=== PATIENT | female | born 1965 ===

== ENCOUNTER 2025-03-14 09:52 | Outpatient (RCR) | payer OTHER, SELFPAY ==
[2025-02-28 10:00] VITALS: BP 136/89
[2025-02-28] MEDS: TYLENOL 650 MG PO (10:26)
[2025-02-28] MEDS: ZYRTEC 10 MG PO (10:26)
[2025-02-28] MEDS: SOLU-CORTEF 100 MG IV (10:27)
[2025-02-28] MEDS: LEQEMBI 257.94 MG IV ×2 (10:33)
[2025-02-28 11:35] VITALS: BP 131/81
[2025-02-28 12:20] VITALS: BP 133/76
[2025-03-14] VITALS (7 sets, daily range): BP systolic 102–137; BP diastolic 70–88
[2025-03-14] MEDS: ZYRTEC 10 MG PO (10:46)
[2025-03-14] MEDS: TYLENOL 650 MG PO (10:46)
[2025-03-14] MEDS: SOLU-CORTEF 100 MG IV (10:47)
[2025-03-14] MEDS: NSS 250 IV (10:48)
[2025-03-14] MEDS: LEQEMBI 257.94 MG IV ×2 (10:56)
== END 2025-03-15 09:41 | disposition home or self-care (01) ==
LOC: OID 09:52
PROVIDERS: ATTENDING PHYSICIAN Psychiatry & Neurology Neurology; FAMILY PHYSICIAN Family Medicine
DX: G60.3 Idiopathic progressive neuropathy (principal)
CPT/HCPCS: 96361; 96365; 96375; J0174

== ENCOUNTER 2025-04-11 09:59 | Outpatient (RCR) | payer OTHER, SELFPAY ==
[2025-03-28 10:05] VITALS: BP 138/90
[2025-03-28] MEDS: SOLU-CORTEF 100 MG IV (10:22)
[2025-03-28] MEDS: NSS 250 IV (10:22)
[2025-03-28] MEDS: ZYRTEC 10 MG PO (10:23)
[2025-03-28] MEDS: TYLENOL 650 MG PO (10:23)
[2025-03-28] MEDS: LEQEMBI 257.94 MG IV ×2 (10:23)
[2025-03-28 12:45] VITALS: BP 121/85
[2025-04-11 10:15] VITALS: BP 192/96
[2025-04-11] MEDS: SOLU-CORTEF 100 MG IV (10:33)
[2025-04-11] MEDS: ZYRTEC 10 MG PO (10:33)
[2025-04-11] MEDS: NSS 250 IV (10:35)
[2025-04-11] MEDS: LEQEMBI 257.94 MG IV ×2 (10:39)
[2025-04-11] MEDS: BENADRYL 0.5 MG IV ×2 (12:37→12:57)
[2025-04-11] MEDS: NSS (PRESERVATIVE FREE) 10 ML IV (12:59)
[2025-04-11] MEDS: NSS (PRESERVATIVE FREE) 10 MG IV (12:59)
[2025-04-11 13:04] VITALS: BP 151/93
[2025-04-11 13:32] VITALS: BP 136/76
[2025-04-11 14:21] VITALS: BP 108/84
[2025-04-11] MEDS: SOLU-MEDROL PF 54 MG IV (14:30)
--- NOTE | 2025-04-11 15:04 | STATUS ---
SITUATION:
Pt presented with head pressure, and changes in vision post infusion with Leqembi. This is the pt fourth time recieving this drug and first time having any sort of reaction during or before. VS were stable but pt started to present with chest
tightness and shortness of breath. Pt recieved 25 benadryl IV. We waited 5 minutes and then gave another 25mg benadry IV as well as pepcid IV. Pt still reported all same symptoms. This RN called [facility] to speak with the pts neurologist about how to
proceed. I Spoke with a nurse, Lobo and then eventually spoke with Dr. Jacobson. He recommeded pt recieve 250mg solumedrol and be taken to the ER for iron sensitive imaging. Pt transported to ER with this RN and talent development manager Sharri with solumedrol
hanging. Report was given to Er nurse and this RN waited for solumedrol to finish before leaving the pt with her sister in the ER triage.
BACKGROUND:
ASSESSMENT:
RECOMMENDATION:
== END 2025-04-25 23:59 | disposition home or self-care (01) ==
LOC: OID 09:59
PROVIDERS: ATTENDING PHYSICIAN Psychiatry & Neurology Neurology; FAMILY PHYSICIAN Family Medicine
DX: G60.3 Idiopathic progressive neuropathy (principal); G30.0 Alzheimer's disease with early onset; G31.84 Mild cognitive impairment of uncertain or unknown etiology
CPT/HCPCS: 96365; 96367; 96375; 96376; J0174

== ENCOUNTER 2025-04-12 09:03 | Inpatient (IN) | payer OTHER, SELFPAY ==
[2025-04-11 14:48] VITALS: BP 145/113
[2025-04-11] MEDS: BENADRYL 25 MG IV (17:03)
[2025-04-11] MEDS: TYLENOL 650 MG PO (17:03)
[2025-04-11] MEDS: COMPAZINE 10 MG IV (17:04)
--- NOTE | 2025-04-11 19:18 | ED.GENMED ---
History of Present Illness
General
Chief Complaint: Headache
Source: patient
Exam Limitations: none
Time Seen by Provider: 04/11/25 16:05
History of Present Illness
History of Present Illness:
59-year-old female presents from the outpatient infusion center for worsening headache and blurry vision. She was receiving a dose of Leqembi. This was her fourth infusion. She was instructed to come to the emergency room for emergent MRI imaging
of her brain by her neurologist from [place] for potential side effects of this infusion. She notes blurry vision out of both eyes. She denies any unilateral numbness or weakness. There is no vomiting. No chest pain.
Phy Exam
Physical Exam
Physical Exam:
General: Well appearing female, NAD
HEENT: NC/AT PERRL
Heart: RRR, no murmurs
Lungs: CTA
Neuro: Alert and oriented, no facial asymmetry, no unilateral deficit, weakness or drift. No slurred speech
Ext: no cyanosis or edema.
skin: Warm, no rash
Course
Orders/Labs/Results
Orders:
Orders
04/11/25 16:39
MRI Brain [MR Brain Without Contrast] Urgent
Comment:
Reason For Exam: headache
Recent pill cam endoscopy?: No
04/11/25 16:44
Acetaminophen [Tylenol] 650 mg PO NOW STA
Diphenhydramine [Benadryl] 25 mg IV NOW STA
Prochlorperazine [Compazine] 10 mg IV NOW STA
Vital Signs
Initial and Last Documented VS:
Initial Vital Signs
Temp Pulse Resp BP Pulse Ox
99.3 F 104 16 145/113 97
04/11/25 14:48 04/11/25 14:48 04/11/25 14:48 04/11/25 14:48 04/11/25 14:48
Last Documented Vital Signs
Temp Pulse Resp BP Pulse Ox
99.3 F 118 19 145/113 95
04/11/25 14:48 04/11/25 17:15 04/11/25 17:00 04/11/25 14:48 04/11/25 17:00
MDM/Problems Addressed
Differential Diagnosis Includes:
Patient presents with worsening headache since infusion today. Infusion is known to potentially cause cerebral edema or microhemorrhages. She was sent in for an emergent MRI of the brain by her neurologist. I spoke with our neurology team as well
as radiology. MRI of the brain was ordered which does demonstrate edema within the right occipital lobe. Spoke with neurology from [facility] who recommended 1g IV solumedrol daily x 3 days[address] I spoke with Dr. Cardenas who is aware and agrees with
admission.
*Pulse Oximetry
SaO2: 95
Oxygen Mode of Delivery: Room air
Patient hypoxic: no
*Critical Care Note
Total Time (30-74mins, 75-104mins- exclusive of procedures): Not Applicable
ED Attending Note
-
Portions of this chart may have been created with voice recognition software.� Occasional wrong word or��sound alike� substitutions may have occurred due to the inherent limitations of voice recognition software.
Discharge Plan
Departure
Patient Disposition: Admit
Date of Disposition: 04/11/25
Time of Disposition: 19:27
Presentation/result/management discussed w/ accepting MD/DO: Hospitalist
Discharge Problem:
Headache
Prescriptions:
No Action
atorvastatin [Lipitor] 20 mg Tablet
20 mg PO DAILY
donepezil [Aricept] 5 mg Tablet
5 mg PO HS
venlafaxine 150 mg Capsule,Extended Release 24hr
150 mg PO DAILY
alprazolam [Xanax] 0.25 mg Tablet
0.25 mg PO HS PRN (Reason: anxiety)
famotidine [Acid Nicu Rn (famotidine)] 20 mg Tablet
20 mg PO BID
magnesium 250 mg Tablet
250 mg PO DAILY
memantine 5 mg Tablet
5 mg PO BID
melatonin 5 mg Tablet
5 mg PO HS PRN (Reason: sleep)
cholecalciferol (vitamin D3) [Vitamin D3] 50 mcg (2,000 unit) Capsule
50 mcg PO DAILY
mecobalamin (vitamin B12) [B12 Active] 1,000 mcg Tablet,Chewable
1,000 mcg PO .EVERYOTHER DAY
Referrals:
Cristy Gotti DO [Family Provider, Family Practice]
Interventions
Interventions:
*Risk Screen - Suicide Last Done: 04/11/25 14:48
*General Assessment Last Done: 04/11/25 17:39
*Neglect/Abuse Screening Last Done: 04/11/25 14:48
*ED COVID-19 Vaccine History Last Done: 04/11/25 15:42
ED- Neurological Assessment Last Done: 04/11/25 15:43
Discharge Date and Time
Print Language: ARABIC
[2025-04-11 19:57] VITALS: BP 138/102
[2025-04-11 20:00] VITALS: BP 136/104
[2025-04-11 20:07] LABS: Hematocrit 42.6 % (37.0-47.0); Hemoglobin 14.8 g/dL (12.0-16.0); Mean Corp Hgb Conc. 34.7 g/dL (33.0-37.0); Mean Corpuscular Volume 88.2 fL (81.0-99.0); Nucleated Red Blood Cells % 0 %; Platelet Count 361 10^3/uL (130-400); Red Cell Dist. Width 13.2 % (11.5-14.5)
[2025-04-11] MEDS: SOLU-MEDROL 262 MG IV (20:19)
[2025-04-11 20:31] LABS: ALT (SGPT) 34 U/L (0-35); AST (SGOT) 31 U/L (14-36); Albumin 5.1 g/dl (3.5-5.0); Alkaline Phosphatase 202 U/L (38-126); Blood Urea Nitrogen 10 mg/dl (7-17); Calcium 9.9 mg/dl (8.4-10.2); Carbon Dioxide 22 mmol/L (22-30); Chloride 109 mmol/L (98-107); Glucose 168 mg/dl (70-99); Potassium 4.0 mmol/L (3.5-5.1); Sodium 141 mmol/L (135-145); Total Protein 7.7 g/dl (6.3-8.2); eGFR > 60.00
[2025-04-11 21:00] VITALS: BP 126/76
[2025-04-11 22:00] VITALS: BP 134/78
--- NOTE | 2025-04-11 22:50 | HPS.HSE ---
Family Physician
-
Family Physician: Cristy Gotti
Chief Complaint
-
CARRANZA and blurry vision s/p 4th IV infusion of Leqembi.
History of Present Illness
HPI
59F HX Dementia , No prior visit to seen at ER:
- she presents from the outpatient infusion center for worsening headache and blurry vision.
- she was receiving 4th dose of IV Leqembi( Monoclonal Ab)
- She was instructed to come to the ER for emergent MRI imaging of her brain by her neurologist from [place] for potential side effects of this infusion.
Medical History
Past Medical History
Past Medical History: Reports Dementia and Hypercholesterolemia
Past Surgical History: Reports None
Social History
Unable to obtain full social history at this time due to: Dementia
Family History
Family History: Not pertinent
Allergies / Home Medications
Allergies reflects when Allergies were last updated in [facility].
Home Medications with original date entered in [facility]
Allergy/Medication List:
Allergies
Allergy/AdvReac Type Severity Reaction Status Date / Time
Latex, Natural Rubber Allergy Severe Shortness Verified 04/11/25 10:29
of Breath
diphenhydramine Allergy Unknown Unknown Verified 04/11/25 10:29
Home Medications
atorvastatin 20 mg tablet (Lipitor) 20 mg PO .ON HOLD 02/28/25
cholecalciferol (vitamin D3) 50 mcg (2,000 unit) capsule (Vitamin D3) 50 mcg PO DAILY 02/28/25
donepezil 5 mg tablet (Aricept) 5 mg PO QPM 02/28/25
famotidine 20 mg tablet (Acid Greeter (famotidine)) 20 mg PO BID 02/28/25
magnesium 250 mg tablet 250 mg PO HS 02/28/25
melatonin 5 mg tablet 5 mg PO HSPRN PRN sleep 02/28/25
memantine 5 mg tablet 5 mg PO BID 02/28/25
venlafaxine 150 mg capsule,extended release 24 hr 150 mg PO DAILY 02/28/25
acetaminophen 500 mg tablet (Tylenol Extra Strength) 500 - 1,000 mg PO TIDPRN PRN mild pain 04/11/25
cyanocobalamin (vitamin B-12) 1,000 mcg tablet 1,000 mcg PO Q48H 04/11/25
ruxolitinib 1.5 % topical cream (Opzelura) 1 applic topical BID apply to vitiligo 04/11/25
Review of Systems
-
Unable to obtain full review of systems at this time due to: Dementia
Physical Exam
Vital Signs
Vital Signs
Temp Pulse Resp BP Pulse Ox
99.3 F 98 13 136/104 93
04/11/25 14:48 04/11/25 17:24 04/11/25 17:24 04/11/25 20:00 04/11/25 20:00
Physical Exam
General: Well Developed, Well Nourished and No Apparent Distress
HEENT: NormoCephalic, Moist mucous membranes and Atraumatic
Respiratory: Clear
Cardiac: S1/S2 and Regular Rhythm; No Murmur or Rub
GI: Soft, Non Tender, Non Distended and Normal Bowel Sounds; No Organomegaly
Rectal: Deferred by Provider
Musculoskeletal: No Clubbing, No Cyanosis and No Edema
Skin: Rash and Other (vertiligo at UEx and face )
Neuro: Nonfocal/grossly intact
Laboratory Results
-
04/11/25 19:43
04/11/25 19:42
Laboratory Results
Total Bilirubin 1.0 mg/dl (0.2-1.3) 04/11/25 19:42
AST 31 U/L (14-36) 04/11/25 19:42
ALT 34 U/L (0-35) 04/11/25 19:42
Alkaline Phosphatase 202 U/L (38-126) H 04/11/25 19:42
Data Reviewed
-
MRI: Report Reviewed by me
Lab Data: Labs Reviewed by me
Impression/Plan
-
Relevant data
Unremarkable CBC and CMP
Brain MRI
There is T2/FLAIR hyperintense signal with associated facilitated diffusion in the right occipital lobe.
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
Findings were discussed with the ordering provider Kurtis Rangel of the emergency department at 1830.
Last hospitalist admission:
ASSESSMENT & PLAN
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
HX MCI and Mild dementia
- mimic ischemic stroke but not stroke
- at risk for SZs, ICH , life threatening ADEs of Leqemibi
- Neurologist Dr Cardenas - IV solumedrol 1g daily x 3 day
- First dose of IV Methyl Prednisone 750 mg started at ER - brissa cont 2 more days
- c/w ELECTRICIAN UNDERGROUND Denepezil + Memantine
- Neurologist consult
HLD
- cont ELECTRICIAN UNDERGROUND Lipitor
Depression
- cont ELECTRICIAN UNDERGROUND Venlafaxine
Vitiligo HX
- cont OP meds
DVT Px: SCD
Full code
IP TLM
[2025-04-11 23:00] VITALS: BP 130/93
[2025-04-12] VITALS (7 sets, daily range): BP systolic 125–156; BP diastolic 71–97; BMI 30.3
--- NOTE | 2025-04-12 03:16 | PTCARENOTE ---
Pt arrived to 3W from ED via stretcher at approximately 0020. Pt able to ambulate into room. Pt and sister oriented to unit. Assessment completed by this RN. Call maurer within reach, plan of care ongoing.
[2025-04-12] MEDS: SOLU-MEDROL 258 MG IV (05:59)
[2025-04-12 06:01] LABS: Hematocrit 39.2 % (37.0-47.0); Hemoglobin 13.4 g/dL (12.0-16.0); Mean Corp Hgb Conc. 34.2 g/dL (33.0-37.0); Mean Corpuscular Volume 89.1 fL (81.0-99.0); Platelet Count 342 10^3/uL (130-400); Red Cell Dist. Width 12.9 % (11.5-14.5)
[2025-04-12 06:28] LABS: Blood Urea Nitrogen 16 mg/dl (7-17); Calcium 10.6 mg/dl (8.4-10.2); Carbon Dioxide 23 mmol/L (22-30); Chloride 109 mmol/L (98-107); Estimated Creatinine Clearance 111 ml/min; Glucose 248 mg/dl (70-99); Potassium 3.4 mmol/L (3.5-5.1); Sodium 140 mmol/L (135-145); eGFR > 60.00
[2025-04-12] MEDS: EFFEXOR XR 150 MG PO (08:04)
[2025-04-12] MEDS: NAMENDA 5 MG PO ×2 (08:04→20:52)
[2025-04-12] MEDS: KCL 40 MEQ PO (10:12)
[2025-04-12] MEDS: TYLENOL 650 MG PO (16:23)
--- NOTE | 2025-04-12 16:39 | CM ---
Alert awake oriented patient who lives with her SO Cristóbal in a 2 story home with 1 steps to enter and 13 steps to bed/bathroom. She is assisted in activates of daily living.She does drive .She uses no adaptive devices.
No VN in past . No SNF hx
Pharmacy [facility]
PCP Dr Gotti
PLAN Home with no needs
--- NOTE | 2025-04-12 17:38 | W.PN.HOSP.TC ---
Today's Communication/Plan
-
See plan
Assessment / Plan
Assessment / Plan
Impression
Presentation with acute onset of bilateral visual disturbances/blurry vision
Patient with Alzheimer's dementia on amyloid lowering therapy (monoclonal antibody IV infusion of Leqembi)
MRI findings consistent with acute to/flare hyperintense signal with associated facilitated diffusion in the right occipital lobe. In the settings of reported signal with lowering therapy and this is likely represents ARIA-E which is I am alert
reducing imaging abnormality. Reported side effect of monoclonal antibody.
Patient has no focal findings on exam
She has been initiated on pulse dose of Solu-Medrol 1 g daily for 3 days to be completed on 04/13
Continue close neurologic monitoring
Patient will be followed with primary neurology Dr. Kayden Jacobson [phone]/JOSEPHINE Castrejon [phone].
Dr. Alegre updated over the phone
Tachycardia and hypertension
ECG with normal sinus rhythm
Echo with preserved biventricular function
Continue telemetry monitoring
Hypertension likely related to pulse dose of systemic steroids. If uptrending, and remains tachycardic, consider introduce selective beta-he versus dihydropyridine ccb
Anticipated Discharge: 24 - 48 hours
Subjective/Interval History
-
Date of Service: April 12, 2025
Objective Data
-
Labs:
Laboratory Results
04/12/25
05:23
WBC 14.9 H
Hgb 13.4
Hct 39.2
Plt Count 342
Sodium 140
Potassium 3.4 L
Chloride 109 H
Carbon Dioxide 23
BUN 16
Creatinine 0.6
Glucose 248 H
Calcium 10.6 H
Vital Signs:
Vital Signs
Temp Pulse Resp BP Pulse Ox
98.3 F 93 16 155/93 95
04/12/25 15:51 04/12/25 15:51 04/12/25 15:51 04/12/25 15:51 04/12/25 15:51
I&O
04/11/25 04/12/25 04/13/25
06:59 06:59 06:59
Intake Total 0 / 0
Balance 1680 0
Physical Exam
-
General: Well Developed and No Apparent Distress
HEENT: Normocephalic, Atraumatic and Moist Mucous Membranes
Respiratory: Clear to Auscultation
Cardiac: Regular Rhythm and S1/S2; Negative Murmur, Rub or Gallop
GI: Soft, Nontender, Nondistended and Normal Bowel Sounds; Negative Organomegaly
Rectal: Deferred by Provider
Musculoskeletal: No Clubbing, No Cyanosis and No Edema
Skin: Negative Rash
Neuro: Nonfocal/Grossly Intact
[2025-04-12] MEDS: ARICEPT 5 MG PO (18:19)
[2025-04-12] MEDS: LIPITOR 20 MG PO (20:52)
[2025-04-12] MEDS: PEPCID 20 MG PO (20:52)
--- NOTE | 2025-04-12 22:06 | CON.NEURO ---
Neuro Assessment/Plan
Assessment
59 year old woman with Alz, mild dementia on Leqembi presenting with worsening headaches, blurry vision.
MRI imgs rev'd with patient and family showing a small amount of right occipital DWI and FLAIR signal abnormality consistent with ARIA-E (amylyoid related imaging abnormality with edema), of which headaches and blurry vision are typical symptoms.
Planned for 3 days of steroids to finish tomorrow
also component of occipital neuralgia on exam and some muscle stiffness on palpation; would heat pad or alternate ice/heat instead of just ice
Consultation
Order
Date of Consultation: 04/12/25
Requesting Provider: Keegan Lindsey
Reason for Consult: ARIA
Subjective/Objective
Subjective Data
Date of Service: April 12, 2025
from h&p:
59F HX Dementia , No prior visit to seen at ER:
- she presents from the outpatient infusion center for worsening headache and blurry vision.
- she was receiving 4th dose of IV Leqembi( Monoclonal Ab)
- She was instructed to come to the ER for emergent MRI imaging of her brain by her neurologist from [place] for potential side effects of this infusion.
primary neurology Dr. Kayden Jacobson [phone]/JOSEPHINE Lucía [phone]
seen this afternoon, patient reported blurry vision was much better. headache was mild this morning but got worse x several hours
Objective Data
Vital Signs
Temp Pulse Resp BP Pulse Ox
37.1 C 84 16 153/94 95
04/12/25 19:50 04/12/25 19:50 04/12/25 19:50 04/12/25 19:50 04/12/25 19:50
Lab Results
04/12/25 05:23
04/12/25 05:23
Sodium 140 mmol/L (135-145) 04/12/25 05:23
Potassium 3.4 mmol/L (3.5-5.1) L 04/12/25 05:23
BUN 16 mg/dl (7-17) 04/12/25 05:23
Glucose 248 mg/dl (70-99) H 04/12/25 05:23
Calcium 10.6 mg/dl (8.4-10.2) H 04/12/25 05:23
Patient Allergies
Latex, Natural Rubber Allergy (Severe, Verified 04/11/25 10:29)
Shortness of Breath
diphenhydramine Allergy (Unknown, Verified 04/11/25 10:29)
Unknown
Physical Exam
-
AAOx3, speech clear, language intact
VFF, EOMI, face symmetric
grossly full strength
increased of cervical lordosis, tender occipital nerves bilaterraly radaiting.
Medications
-
Active Medications
Generic Name Dose Route Start Last Admin
Trade Name Freq PRN Reason Stop Dose Admin
Acetaminophen 650 mg 04/12/25 15:59 04/12/25 16:23
Acetaminophen 325 Mg Tablet PO 05/10/25 15:58 650 mg
Q4HPRN PRN Administration
headache, pain
Atorvastatin Calcium 20 mg 04/12/25 22:00 04/12/25 20:52
Atorvastatin (Lipitor) 20 Mg Tablet PO 05/10/25 21:59 20 mg
HS REJI Administration
Bisacodyl 10 mg 04/12/25 00:29
Bisacodyl 10 Mg Rectal Suppository RECTAL 05/10/25 00:28
[id number] PRN
constipation
Donepezil HCl 5 mg 04/12/25 18:00 04/12/25 18:19
Donepezil 5 Mg Tablet PO 05/10/25 17:59 5 mg
QPM REJI Administration
Famotidine 20 mg 04/12/25 20:00 04/12/25 20:52
Famotidine 20 Mg Tablet PO 05/10/25 19:59 20 mg
BID REJI Administration
Methylprednisolone Sodium 258 mls @ 258 mls/hr 04/12/25 06:00 04/12/25 05:59
Succinate 1,000 mg/ Sodium IV 04/14/25 05:59 258 mls
Chloride DAILY @ 0600 REJI Administration
Memantine 5 mg 04/12/25 08:00 04/12/25 20:52
Memantine 10 Mg Tablet PO 05/10/25 07:59 5 mg
BID REJI Administration
Ruxolitinib [ 0 applic 04/12/25 08:00
Opzelura] 1.5 % TOPICAL 05/10/25 07:59
Cream 1 Applic Top BID REJI
Bid
Polyethylene Glycol 17 grams 04/12/25 00:29
Polyethylene Glycol Powder 17 Grams Packet PO 05/10/25 00:28
DAILYPRN PRN
constipation
Senna/Docusate Sodium 1 tablet 04/12/25 00:29
Docusate W/Senna (Anastasiia-Colace) Tablet PO 05/10/25 00:28
BIDPRN PRN
constipation
Sodium Chloride 0 flush 04/12/25 01:00
Sodium Chloride 0.9% (Flush) Syringe IV 05/10/25 00:59
PER PROTOCOL REJI
Venlafaxine HCl 150 mg 04/12/25 08:00 04/12/25 08:04
Venlafaxine 150 Mg Extended Release Capsule PO 05/10/25 07:59 150 mg
DAILY REJI Administration
Home Medications
�Medication �Instructions �Recorded
atorvastatin 20 mg tablet (Lipitor) 20 mg PO HS cholesterol 02/28/25
cholecalciferol (vitamin D3) 50 50 mcg PO DAILY 02/28/25
mcg (2,000 unit) capsule (Vitamin
D3)
donepezil 5 mg tablet (Aricept) 5 mg PO QPM 02/28/25
famotidine 20 mg tablet (Acid 20 mg PO BID 02/28/25
Experimental Machinist (famotidine))
magnesium 250 mg tablet 250 mg PO HS 02/28/25
melatonin 5 mg tablet 5 mg PO HSPRN PRN sleep 02/28/25
memantine 5 mg tablet 5 mg PO BID 02/28/25
venlafaxine 150 mg 150 mg PO DAILY 02/28/25
capsule,extended release 24 hr
acetaminophen 500 mg tablet 500 - 1,000 mg PO TIDPRN PRN mild 04/11/25
(Tylenol Extra Strength) pain
cyanocobalamin (vitamin B-12) 1,000 mcg PO Q48H 04/11/25
1,000 mcg tablet
ruxolitinib 1.5 % topical cream 1 applic topical BID apply to 04/11/25
(Opzelura) vitiligo
[2025-04-13] VITALS (8 sets, daily range): BP systolic 146–166; BP diastolic 88–106; BMI 30.4
[2025-04-13] MEDS: EFFEXOR XR 150 MG PO (08:18)
[2025-04-13] MEDS: PEPCID 20 MG PO ×2 (08:18→21:01)
[2025-04-13] MEDS: NAMENDA 5 MG PO ×2 (08:18→21:01)
[2025-04-13] MEDS: TYLENOL 650 MG PO ×2 (08:25→15:57)
[2025-04-13] MEDS: SOLU-MEDROL 258 MG IV (09:44)
[2025-04-13] MEDS: APRESOLINE 5 MG IV ×2 (09:59→15:59)
--- NOTE | 2025-04-13 10:49 | W.PN.NEURO.1 ---
Today's Communication / Plan
-
finishes steroids today
orthostatic tachycardia and HTN are likely side effects of steroids and get better later in the day as they wear off she could potentially go home
Neuro Assessment/Plan
Assessment
59 year old woman with Alz, mild dementia on Leqembi presenting with worsening headaches, blurry vision.
MRI imgs rev'd with patient and family showing a small amount of right occipital DWI and FLAIR signal abnormality consistent with ARIA-E (amylyoid related imaging abnormality with edema), of which headaches and blurry vision are typical symptoms.
Planned for 3 days of steroids to finish tomorrow
also component of occipital neuralgia on exam and some muscle stiffness on palpation; would heat pad or alternate ice/heat instead of just ice, responding to tylenol so holdign off on nerve blocks for now
Subjective/Objective
Subjective Data
Date of Service: April 13, 2025
getting 3rd/last dose of steroids. reports vision improving, one episode of floaters
occipital headache, 9.5 this morning improved to 5/10 after tylenol
still with high blood pressure, orthostatic tachycardia
Objective Data
Vital Signs
Temp Pulse Resp BP Pulse Ox
36.8 C 68 16 169/97 96
04/13/25 08:25 04/13/25 09:59 04/13/25 08:25 04/13/25 09:59 04/13/25 03:45
Sodium 140 mmol/L (135-145) 04/12/25 05:23
Potassium 3.4 mmol/L (3.5-5.1) L 04/12/25 05:23
BUN 16 mg/dl (7-17) 04/12/25 05:23
Glucose 248 mg/dl (70-99) H 04/12/25 05:23
Calcium 10.6 mg/dl (8.4-10.2) H 04/12/25 05:23
Patient Allergies
Latex, Natural Rubber Allergy (Severe, Verified 04/11/25 10:29)
Shortness of Breath
diphenhydramine Allergy (Unknown, Verified 04/11/25 10:)
Unknown
[2025-04-13 11:09] LABS: Hematocrit 42.0 % (37.0-47.0); Hemoglobin 14.4 g/dL (12.0-16.0); Mean Corp Hgb Conc. 34.3 g/dL (33.0-37.0); Mean Corpuscular Volume 88.1 fL (81.0-99.0); Platelet Count 373 10^3/uL (130-400); Red Cell Dist. Width 13.6 % (11.5-14.5)
--- NOTE | 2025-04-13 11:18 | W.PN.HOSP.TC ---
Addendum entered and electronically signed by Rachana Moreland MD 04/13/25 11:20:
hypokalemia - replete prn
Original Note:
Today's Communication/Plan
-
re-evaluate vitals at 3pm to determine BB or CCB therapy
DC home likely this evening
Assessment / Plan
Assessment / Plan
Impression
Presentation with acute onset of bilateral visual disturbances/blurry vision
Patient with Alzheimer's dementia on amyloid lowering therapy (monoclonal antibody IV infusion of Leqembi)
MRI findings consistent with acute to/flare hyperintense signal with associated facilitated diffusion in the right occipital lobe. In the settings of reported signal with lowering therapy and this is likely represents ARIA-E which is I am alert
reducing imaging abnormality. Reported side effect of monoclonal antibody.
Patient has no focal findings on exam
s/p 3 doses of Solu-Medrol 1 g daily
Continue close neurologic monitoring
Patient will be followed with primary neurology Dr. Kayden Jacobson [phone]/JOSEPHINE Lucía [phone].
Dr. Alegre updated over the phone Dr. Walker 04/12
Tachycardia and hypertension
ECG with normal sinus rhythm
Echo with preserved biventricular function
Continue telemetry monitoring
Hypertension likely related to pulse dose of systemic steroids. If uptrending, and remains tachycardic, consider introduce selective beta-he versus dihydropyridine ccb
Anticipated Discharge: Within 24 hours
Subjective/Interval History
-
Date of Service: April 13, 2025
s/p dose 3 of steroids IV
vision improving
headache this AM, responding to Tylenol
Objective Data
-
Labs:
Laboratory Results
04/13/25
10:53
WBC 31.4 H
Hgb 14.4
Hct 42.0
Plt Count 373
Sodium Pending
Potassium Pending
Chloride Pending
Carbon Dioxide Pending
BUN Pending
Creatinine Pending
Glucose Pending
Calcium Pending
Vital Signs:
Vital Signs
Temp Pulse Resp BP Pulse Ox
98.2 F 78 18 157/96 98
04/13/25 11:03 04/13/25 11:03 04/13/25 11:03 04/13/25 11:03 04/13/25 11:03
I&O
04/12/25 04/13/25 04/14/25
06:59 06:59 06:59
Intake Total 1919
Balance 1919
Physical Exam
-
General: No Apparent Distress
HEENT: Normocephalic and Atraumatic
Respiratory: Negative Wheezes
Cardiac: Regular Rhythm and S1/S2
GI: Soft and Nontender
Musculoskeletal: No Edema
Neuro: AO x 3
Psych: Calm
Data Reviewed
-
Total Time Spent with Patient (in minutes): 41
Labs: Labs Reviewed by me
[2025-04-13 11:25] LABS: Nucleated Red Blood Cells % 0 %
[2025-04-13 11:44] LABS: Blood Urea Nitrogen 13 mg/dl (7-17); Calcium 10.3 mg/dl (8.4-10.2); Carbon Dioxide 23 mmol/L (22-30); Chloride 107 mmol/L (98-107); Estimated Creatinine Clearance 111 ml/min; Glucose 169 mg/dl (70-99); Potassium 3.6 mmol/L (3.5-5.1); Sodium 142 mmol/L (135-145); eGFR > 60.00
[2025-04-13] MEDS: LOPRESSOR 12.5 MG PO (17:10)
[2025-04-13] MEDS: ARICEPT 5 MG PO (17:11)
[2025-04-13] MEDS: LIPITOR 20 MG PO (21:01)
[2025-04-14] VITALS (8 sets, daily range): BP systolic 133–189; BP diastolic 84–114; PULSE 56; O2SAT 96; BMI 30.1
--- NOTE | 2025-04-14 07:40 | PTCARENOTE ---
Patient is expressing some discomfort/headache pain, more to right side of the head. Also c/o 'blurry vision' while looking at the QR code hanging on the wall in front of her, but determined that it may have been the QR code, every other sign
appears clear to patient when assessing. BPs elevated this AM -- manual BP checked, see signs. Patient and sister at bedside are requesting to have visit from Neurologist today to discuss concerns. Discussed with oncoming ashkan TORRES.
[2025-04-14] MEDS: LOPRESSOR 12.5 MG PO (08:49)
[2025-04-14] MEDS: EFFEXOR XR 150 MG PO (08:50)
[2025-04-14] MEDS: TYLENOL 650 MG PO (08:50)
[2025-04-14] MEDS: PEPCID 20 MG PO (08:50)
[2025-04-14] MEDS: NAMENDA 5 MG PO (08:51)
--- NOTE | 2025-04-14 11:12 | W.PN.HOSP.TC ---
Today's Communication/Plan
-
await PT/OT evals and then plan DC
Assessment / Plan
Assessment / Plan
Impression
Presentation with acute onset of bilateral visual disturbances/blurry vision
Patient with Alzheimer's dementia on amyloid lowering therapy (monoclonal antibody IV infusion of Leqembi)
MRI findings consistent with acute to/flare hyperintense signal with associated facilitated diffusion in the right occipital lobe. In the settings of reported signal with lowering therapy and this is likely represents ARIA-E which is I am alert
reducing imaging abnormality. Reported side effect of monoclonal antibody.
Patient has no focal findings on exam
s/p 3 doses of Solu-Medrol 1 g daily
Continue close neurologic monitoring
Patient will be followed with primary neurology Dr. Kayden Jacobson [phone]/JOSEPHINE Castrejon [phone].
Dr. Alegre updated over the phone Dr. Walker 04/12
Tachycardia and hypertension
ECG with normal sinus rhythm
Echo with preserved biventricular function
Continue telemetry monitoring
Hypertension/tachycardia likely related to pulse dose of systemic steroids. started on Coreg 12.5mg BID - and follow up with PCP. Check home BPs
Dispo: pending PT/OT
Anticipated Discharge: Today
Subjective/Interval History
-
Date of Service: April 14, 2025
resting comfortably, no complaints
Objective Data
-
Vital Signs:
Vital Signs
Temp Pulse Resp BP Pulse Ox
98.1 F 69 17 157/102 97
04/14/25 07:23 04/14/25 08:49 04/14/25 07:23 04/14/25 08:49 04/14/25 07:23
I&O
04/13/25 04/14/25 04/15/25
06:59 06:59 06:59
Intake Total 1919 / 1919 600 / 600
Balance 192 / 1919 600 / 600
Physical Exam
-
General: No Apparent Distress
HEENT: Normocephalic and Atraumatic
Respiratory: Negative Wheezes
Cardiac: Regular Rhythm and S1/S2
GI: Soft and Nontender
Musculoskeletal: No Edema
Neuro: AO x 3
Psych: Calm
Data Reviewed
-
Total Time Spent with Patient (in minutes): 42
Labs: Labs Reviewed by me
--- NOTE | 2025-04-14 11:15 | W.DS.TRANS ---
DC Summary - Furnace Operator
-
Discharge Instructions:
Discharge Diagnosis/Procedures ARIA-E from [facility]
Diet Low Cholesterol
Activity As tolerated
Instructions:
Stand-Alone Forms:
Changes to Home Medications: No
Discharge Medications:
DC Medications w/original date entered in [facility]
atorvastatin 20 mg tablet (Lipitor) 20 mg PO HS cholesterol 02/28/25
cholecalciferol (vitamin D3) 50 mcg (2,000 unit) capsule (Vitamin D3) 50 mcg PO DAILY 02/28/25
donepezil 5 mg tablet (Aricept) 5 mg PO QPM 02/28/25
famotidine 20 mg tablet (Acid Sales Estimator (famotidine)) 20 mg PO BID 02/28/25
magnesium 250 mg tablet 250 mg PO HS 02/28/25
melatonin 5 mg tablet 5 mg PO HSPRN PRN sleep 02/28/25
memantine 5 mg tablet 5 mg PO BID 02/28/25
venlafaxine 150 mg capsule,extended release 24 hr 150 mg PO DAILY 02/28/25
acetaminophen 500 mg tablet (Tylenol Extra Strength) 500 - 1,000 mg PO TIDPRN PRN mild pain 04/11/25
cyanocobalamin (vitamin B-12) 1,000 mcg tablet 1,000 mcg PO Q48H 04/11/25
ruxolitinib 1.5 % topical cream (Opzelura) 1 applic topical BID apply to vitiligo 04/11/25
carvedilol 12.5 mg tablet 12.5 mg PO BID #60 tabs 04/14/25
Home Medication Changes
Pending Results: No
Total time spent discharging patient (in min): 42
[2025-04-14] MEDS: APRESOLINE 10 MG IV (12:05)
--- NOTE | 2025-04-14 14:15 | W.DCSUMMARY ---
Discharge Summary
Discharge Data
Date of Admission: 04/12/25
Date of Discharge: 04/14/25
-
Pending Results: No
Hospital Course
59 y/o F history of Alzheimer dementia on Leqembi (amyloid lowering therapy) presenting to ER with visual disturbance. an MRI showed acute/flare hyperintense signal with associated facilitated diffusion in the right occipital lobe. This was
consistent with ARIA-E (Amyloid-Related Imaging Abnormalities-Edema). She was started on IV steroids for 3 days - pulse dose solu-Medrol. Her symptoms improved. She had tachycardia and hypertension associated with IV steroids and was started on
Coreg with improvement. She was cleared by PT/OT. She was discharged with plan to follow up with PCP For BP check and with Dr. Kayden Jacobson, her Neurologist.
.
Discharge Plan
-
Patient Disposition: Home (Routine Discharge)
Discharge Diagnosis/Procedures: ARIA-E from [facility]
Condition: Fair
Diet: Low Cholesterol
Activity: As tolerated
Referrals:
Cristy Gotti DO [Family Provider, Family Practice] - in one to two weeks
Referral Note: for BP Check
Prescriptions:
New
carvedilol 12.5 mg Tablet
12.5 mg PO BID Qty: 60 0RF
Continued
atorvastatin [Lipitor] 20 mg Tablet
20 mg PO HS
Patient Comments:
04/11/2025, placed on hold 04/05/2025 per pt.'s sister due to cognitive changes; was taking 1 tablet HS. OK to resume per hospitalist & sister
donepezil [Aricept] 5 mg Tablet
5 mg PO QPM
venlafaxine 150 mg Capsule,Extended Release 24hr
150 mg PO DAILY
memantine 5 mg Tablet
5 mg PO BID
Opzelura 1.5 % cream
1 applic TOPICAL BID
Patient Comments:
04/11/2025, pt. is supposed to apply this cream BID but pt. often forgets to put it on per pt.'s sister.
No Action
famotidine [Acid Power Generation Technician (famotidine)] 20 mg Tablet
20 mg PO BID
magnesium 250 mg Tablet
250 mg PO HS
melatonin 5 mg Tablet
5 mg PO HSPRN PRN (Reason: sleep)
cholecalciferol (vitamin D3) [Vitamin D3] 50 mcg (2,000 unit) Capsule
50 mcg PO DAILY
cyanocobalamin (vitamin B-12) 1,000 mcg Tablet
1,000 mcg PO Q48H
acetaminophen [Tylenol Extra Strength] 500 mg Tablet
500 - 1,000 mg PO TIDPRN PRN (Reason: mild pain)
Discharge Orders:
Discharge Patient (As Directed); Ordered 04/14/25
Ordered By: Rachana Moreland
Discharge Date and Time
Discharge Date/Time: 04/14/25 17:07
Print Language: HUNGARIAN
--- NOTE | 2025-04-14 16:50 | CM ---
Patient with Hx Alzheimer's dementia with presenting symptom bilateral visual disturbances/blurry vision. Room air. Per nurse; forgetful.
Met with patient, patient's sister Paula and patient's SO Cristóbal;
they agree with d/c home today. Paula/Crsitóbal will provide transport home.
Plan home today.
== END 2025-04-14 17:07 | disposition home or self-care (01) | DRG 81 ==
LOC: 3 WEST ACU 09:03
PROVIDERS: Internal Medicine; Physician Assistant; ADMITTING PHYSICIAN Internal Medicine; ATTENDING PHYSICIAN Internal Medicine; EMERGENCY PHYSICIAN Student in an Organized Health Care Education/Training Program; FAMILY PHYSICIAN Family Medicine; OTHER PHYSICIAN Psychiatry & Neurology Clinical Neurophysiology
DX: G93.6 Cerebral edema (principal); F02.A3 Dementia in other diseases classified elsewhere, mild, with mood disturbance; M54.81 Occipital neuralgia; H53.8 Other visual disturbances; G30.9 Alzheimer's disease, unspecified; F32.A Depression, unspecified; E78.00 Pure hypercholesterolemia, unspecified; L80 Vitiligo; I11.9 Hypertensive heart disease without heart failure; T50.995A Adverse effect of other drugs, medicaments and biological substances, initial encounter; Y92.531 Health care provider office as the place of occurrence of the external cause; E87.6 Hypokalemia; Z91.040 Latex allergy status; Z88.8 Allergy status to other drugs, medicaments and biological substances
CPT/HCPCS: 70551; 80048; 80053; 85025; 85027; 93005; 93306; 96361; 96374; 96375; 97161; 97165; 99284

== ENCOUNTER 2025-04-29 20:22 | Inpatient (IN) | payer OTHER, SELFPAY ==
[2025-04-29 13:47] VITALS: BP 137/97
--- NOTE | 2025-04-29 15:57 | ED.GENMED ---
History of Present Illness
General
Chief Complaint: Swelling
Source: patient and family
Time Seen by Provider: 04/29/25 15:37
History of Present Illness
History of Present Illness:
This patient is a 59-year-old female presents emergency department with reported 'dizzy spells' noted this week, resulting in a fall over the weekend [place]. She did not suffer injury from this fall. However, for the last 5
days or so she has been stating that she just does not feel herself. Her sister reports that while she does have baseline confusion she has markedly increased confusion recently. 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 Recently, she was lost for many hours while driving to her sister's house. Today, she started to report a feeling of 'pressure' behind her left eye associated with slight blurriness from the left eye. She also has a
sense of discomfort in the left occipital area which is not unusual as per sister. Patient has also been having increasingly persistently elevated blood pressure. Sister is administering Coreg as directed for this and gave her a dose this morning.
Patient denies fever, chills, nausea, vomiting, numbness, tingling, focal weakness, anorexia, urinary symptoms, chest pain, dyspnea. She does have an occasional nonproductive cough.
Past History
Past History
ED Past Medical History: Other (early onset alzheimers)
ED Past Surgical History: and Gynecological
Social History
Tobacco: Non-smoker
Alcohol: Occasional
Drug: None
Personal: Partner
Living: with family
Phy Exam
Physical Exam
Physical Exam:
GENERAL: Alert , in no apparent distress
EYE: pupils equal and reactive, no photophobia, EOMI, no nystagmus
NECK: Supple, no significant adenopathy.
ENT: o/p clr, mmm.
CARDIAC: Regular rate and rhythm .
LUNGS: Clear breath sounds bilaterally, no acute respiratory distress, no wheezes/rales/rhonchi
ABDOMEN: Soft, without focal tenderness, no r/g, no cvat
NEUROLOGICAL: Alert and oriented but obviously forgetful, no focal neuro deficits, [id number] normal, motor 5 out of 5, sensory intact, cranial nerves II through XII intact, visual whiting intact
SKIN: Warm and dry, skin intact.
MUSCULOSKELETAL: No edema, well perfused.
PSYCH: Normal and appropriate interaction.
Scores
Heart Failure Risk
Heart Failure Risk Score: Not Applicable
Course
Orders/Labs/Results
Orders:
Orders
04/29/25 Breakfast
Cholesterol Lowering
At Your Request: Full Participation
Does patient need a safe tray?: No
Cholesterol Lowering: Sodium, 2 Gram
04/29/25 15:54
MR Brain Without Contrast Urgent
Comment:
Reason For Exam: hx of ARIA-E, now L visual complnts
Recent pill cam endoscopy?: No
04/29/25 15:56
Visual Acuity- Treatment ONCE
04/29/25 16:09
Basic Metabolic Panel Urgent
Complete Blood Count/No Diff Urgent
Glycohemoglobin (HgbA1c) Urgent
04/29/25 19:12
MethylPREDNISolone. [Solu-Medrol] 1,000 mg 0.9% Sodium Chloride 250 ml [Nss] 250 ml IV NOW
04/29/25 19:39
Admit/Transfer Patient As Directed
Co-Sign Provider:
Level of Care: Inpatient admission
Assign to:: Medical/Surgical
Physician / Group: obi
Diagnosis: amyloid related edema
Reason for Hospitalization: amyloid related edema
Expected length of stay greater than two midnights?: Yes
ELOS- Estimated Length of Stay in days: 3
I certify the patient meets the requirements for IP care: Yes
PRN Pain Medication Management As Directed
May give lesser potent ordered pain med per pt: Yes
preference::
Protocol:: Medication orders for pain may be administered in a
manner that supports deferring to patient preference
when the pt is:
- Requesting an ordered lesser potent pain medication.
Least to most potent pain medications are defined
as: acetaminophen < NSAID < tramadol < opioids
(morphine, oxycodone, hydromorphone).
- Requesting a lesser dose of the same medication IF
ORDERED.
- Requesting a less intrusive route of administration
if both routes are prescribed by the provider (PO <
IV).
04/29/25 19:40
Code Status As Directed
Resuscitation Status: Full Code
04/29/25 21:08
Acetaminophen [Tylenol] 650 mg PO Q4HPRN PRN
Bisacodyl [Dulcolax] 10 mg RECTAL [id number] PRN
Carvedilol [Coreg] 12.5 mg PO BID
Docusate W/Senna [Senokot-S] 1 tablet PO BIDPRN PRN
Famotidine [Pepcid] 20 mg PO BID
Melatonin 5 mg PO HSPRN PRN sleep
Polyethylene Glycol Powder [Miralax] 17 grams PO DAILYPRN PRN
ruxolitinib [Opzelura] See Dose Instructions TOPICAL BID
04/29/25 21:08
NEUROLOGY CONSULT Routine
Consulting Provider: Jamison Cardenas
Was physician already notified: Yes
Activity As Directed
Activity Level: As Tolerated
Vital Signs As Directed
Frequency: Per unit guidelines
DX Deep Vein Thrombosis Video Routine
04/29/25 22:00
Atorvastatin [Lipitor] 20 mg PO HS
Magnesium l-Lactate [Mag-Tab Sr] 84 mg PO HS
Memantine HCl [Namenda] 5 mg PO BID
04/30/25 08:00
Cholecalciferol (Vitamin D3) [VITAMIN D3 (cholecalciferol)] 50 mcg PO DAILY
Cyanocobalamin [Vitamin B-12] 1,000 mcg PO Q48H
Venlafaxine Extended Release [Effexor Xr] 150 mg PO DAILY
04/30/25 18:00
Donepezil [Aricept] 5 mg PO QPM
Enoxaparin Sodium [Lovenox] 40 mg SC QPM
04/30/25 20:00
MethylPREDNISolone. [Solu-Medrol] 1,000 mg 0.9% Sodium Chloride 250 ml [Nss] 250 ml IV Q24H
Abnormal Lab Results
04/29/25
16:09
Chloride 108 H mmol/L
(98-107)
Glucose 130 H mg/dl
(70-99)
Hemoglobin A1c 5.9 H %
(4.0-5.6)
04/29/25 16:09
04/29/25 16:09
Vital Signs
Initial and Last Documented VS:
Initial Vital Signs
Temp Pulse Resp BP Pulse Ox
98.7 F 76 16 137/97 96
04/29/25 13:47 04/29/25 13:47 04/29/25 13:47 04/29/25 13:47 04/29/25 13:47
Last Documented Vital Signs
Temp Pulse Resp BP Pulse Ox
98.8 F 87 16 139/86 95
05/01/25 14:00 05/01/25 14:00 05/01/25 14:00 05/01/25 14:00 05/01/25 14:00
*Pulse Oximetry
SaO2: 96
Oxygen Mode of Delivery: Room air
Patient hypoxic: no
*Critical Care Note
Total Time (30-74mins, 75-104mins- exclusive of procedures): Not Applicable
Update Note
Update Note:
Patient presents to the Emergency Department with __visual changes and headache
Number and Complexity of Problems Addressed at the Encounter
� Chronic conditions affecting care:
� Acute Exacerbation and/or Progression of Chronic Illness:
� Differential Diagnosis includes: But not limited to medication related effects, CVA/TIA, etc. etc.
Amount and/or Complexity of Data to be Reviewed and Analyzed
� I performed an independent evaluation of and my interpretation is:
EKG:
CT:
Xrays:
Laboratory Studies:
Other:MR Signal alteration in the right occipital lobe without significant change compared to the brain MRI from 04/11/2025. Findings again could reflect amyloid-related edema (ARIA-E). Other less likely differential
considerations would include posterior reversible encephalopathy (PRES), a low-grade glioma, or other inflammatory process/encephalitis.
� Review of other/old records reveals:
� Clinical information was obtained by an independent historian: Sister who is bedside and offers details that patient forgets
� Prescriptions/Medications Considered but not given:
� Further testing considered but not performed:
Risk of Complications and/or Morbidity or Mortality of Patient Management
� Social determinants of health affecting care:
� Discussion with other providers (PCP, Hospitalists, Consultants, etc):
� Escalation of care including admission/observation vs risk of discharge considered: Marydel text sent to MRI radiologist, Dr. Heber Alberto, who is aware of the order that I just placed.
case d/w DR Alegre ([phone]) who agrees with plan for Mri, may need repeat steroid dosing.
ED Attending Note
-
Portions of this chart may have been created with voice recognition software.� Occasional wrong word or��sound alike� substitutions may have occurred due to the inherent limitations of voice recognition software.
Discharge Plan
Departure
Patient Disposition: Admit
Date of Disposition: 04/29/25
Time of Disposition: 19:09
Admit to: Med/Surg
Presentation/result/management discussed w/ accepting MD/DO: Hospitalist
Condition: Good
Discharge Problem:
ARIA-E
Interventions
Interventions:
*Risk Screen - Suicide Last Done: 04/29/25 13:50
*General Assessment Last Done: 04/29/25 16:04
*Neglect/Abuse Screening Last Done: 04/29/25 13:50
*ED- Fall Risk Assessment Last Done: 04/29/25 16:04
*ED COVID-19 Vaccine History Last Done: 04/29/25 21:05
*Nursing Disposition Last Done: 04/29/25 21:05
ED- Cardiac Assessment Last Done: 04/29/25 16:06
ED- Pulmonary Assessment Last Done: 04/29/25 16:06
ED-Skin Assessment Last Done: 04/29/25 16:06
Discharge Date and Time
Discharge Date/Time: 04/29/25 21:05
[2025-04-29 16:02] VITALS: BP 108/87; BMI 30.7
[2025-04-29 16:18] LABS: Hematocrit 40.2 % (37.0-47.0); Hemoglobin 13.6 g/dL (12.0-16.0); Mean Corp Hgb Conc. 33.8 g/dL (33.0-37.0); Mean Corpuscular Volume 89.5 fL (81.0-99.0); Platelet Count 315 10^3/uL (130-400); Red Cell Dist. Width 13.5 % (11.5-14.5)
[2025-04-29 16:39] LABS: Blood Urea Nitrogen 15 mg/dl (7-17); Calcium 9.8 mg/dl (8.4-10.2); Carbon Dioxide 25 mmol/L (22-30); Chloride 108 mmol/L (98-107); Estimated Creatinine Clearance 112 ml/min; Glucose 130 mg/dl (70-99); Sodium 140 mmol/L (135-145); eGFR > 60.00
[2025-04-29 18:00] VITALS: BP 108/72
--- NOTE | 2025-04-29 18:55 | HPS.HSE ---
Family Physician
-
Family Physician: Cristy Gotti
Chief Complaint
-
dizzy
History of Present Illness
59-year-old female with PMH for HTN, alzhmiers disease, HLD, GERD presented to us with dizzy for past few days. sister noticed her more confusion than usual. she is complaining of left eye pressure and discomfort in the left occipital and frontal
head. Patient denies fever, chills, nausea, vomiting, numbness, tingling, focal weakness, anorexia, urinary symptoms, chest pain, dyspnea. She does have an occasional nonproductive cough.
MRI with Signal alteration in the right occipital lobe without significant change compared to the brain MRI from 04/11/2025. Findings again could reflect amyloid-related edema (ARIA-E). Other less likely differential considerations would include
posterior reversible encephalopathy (PRES), a low-grade glioma, or other inflammatory process/encephalitis.
solu Medrol in the ER. admitting for further management.
Medical History
Past Medical History
Past Medical History: Reports Other
Additional Past Medical History:
Dementia and hyperlipidemia
Past Surgical History: Reports None
Social History
Tobacco: Non-smoker
Alcohol: Occasional
Drug: None
Family History
Family History: Not pertinent
Allergies / Home Medications
Allergies reflects when Allergies were last updated in [facility].
Home Medications with original date entered in [facility]
Allergy/Medication List:
Allergies
Allergy/AdvReac Type Severity Reaction Status Date / Time
diphenhydramine Allergy Unknown Verified 04/29/25 19:11
Latex, Natural Rubber Allergy Shortness Verified 04/29/25 19:11
of Breath
Home Medications
atorvastatin 20 mg tablet (Lipitor) 20 mg PO HS cholesterol 02/28/25
cholecalciferol (vitamin D3) 50 mcg (2,000 unit) capsule (Vitamin D3) 50 mcg PO DAILY 02/28/25
donepezil 5 mg tablet (Aricept) 5 mg PO QPM 02/28/25
famotidine 20 mg tablet (Acid Commercial Attorney (famotidine)) 20 mg PO BID 02/28/25
magnesium 250 mg tablet 250 mg PO HS 02/28/25
melatonin 5 mg tablet 5 mg PO HSPRN PRN sleep 02/28/25
memantine 5 mg tablet 5 mg PO BID 02/28/25
venlafaxine 150 mg capsule,extended release 24 hr 150 mg PO DAILY 02/28/25
acetaminophen 500 mg tablet (Tylenol Extra Strength) 1,000 mg PO TIDPRN PRN mild pain 04/11/25
cyanocobalamin (vitamin B-12) 1,000 mcg tablet 1,000 mcg PO Q48H 04/11/25
ruxolitinib 1.5 % topical cream (Opzelura) 1 applic topical BID apply to vitiligo 04/11/25
carvedilol 12.5 mg tablet 12.5 mg PO BID #60 tabs 04/14/25
Review of Systems
-
Constitutional: Reports No Symptoms
EENT: Reports No Symptoms
Respiratory: Reports No Symptoms
Cardiac: Reports No Symptoms
Abdomen/GI: Reports No Symptoms
: Reports No Symptoms
Musculoskeletal: Reports No Symptoms
Skin: Reports No Symptoms
Neurological: Reports Dizzy and Headache
Endocrine: Reports No Symptoms
Hematologic/Lymphatic: Reports No Symptoms
Psych: Reports No Symptoms
Physical Exam
Vital Signs
Vital Signs
Temp Pulse Resp BP Pulse Ox
98.7 F 58 19 108/87 96
04/29/25 13:47 04/29/25 16:02 04/29/25 16:02 04/29/25 16:02 04/29/25 16:06
Physical Exam
General: Well Developed, Well Nourished and No Apparent Distress
HEENT: NormoCephalic, Moist mucous membranes and Atraumatic
Respiratory: Clear
Cardiac: S1/S2 and Regular Rhythm; No Murmur or Rub
GI: Soft, Non Tender, Non Distended and Normal Bowel Sounds; No Organomegaly
Rectal: Deferred by Provider
Musculoskeletal: No Clubbing, No Cyanosis and No Edema
Skin: No Rash
Neuro: AO x 3 and Nonfocal/grossly intact
Psych: Calm
Laboratory Results
-
04/29/25 16:09
04/29/25 16:09
Laboratory Results
Total Bilirubin Cancelled 04/29/25 16:09
AST Cancelled 04/29/25 16:09
ALT Cancelled 04/29/25 16:09
Alkaline Phosphatase Cancelled 04/29/25 16:09
Data Reviewed
-
MRI: Report Reviewed by me
Lab Data: Labs Reviewed by me
Impression/Plan
-
#amyloid related edema
-MRI with Signal alteration in the right occipital lobe without significant change compared to the brain MRI from 04/11/2025. Findings again could reflect amyloid-related edema (ARIA-E). Other less likely differential considerations would include
posterior reversible encephalopathy (PRES), a low-grade glioma, or other inflammatory process/encephalitis.
- Solu-Medrol continued
-Neurology consulted
# Hypertension
# Hyperlipidemia
-Statin and Coreg continued
# History Alzheimer's disease
-Aricept, memantine continued
# GERD
-PPI continued
# DVT prophylaxis
-Lovenox
# CODE STATUS
-Full code
[2025-04-29 19:00] VITALS: BP 124/95
--- NOTE | 2025-04-29 19:40 | W.PN.UPDATE ---
Update Note
Progress Note Update
Patient seen in conjunction with LIP READING TEACHER. I agree the findings on history and physical. I concur with assessment and plan unless stated otherwise.
Briefly, this is a 59-year-old female with past medical history significant for early onset dementia, (Alzheimer's dementia) hypertension, hyperlipidemia presenting to the emergency department with 5 days of not feeling herself. She has had
increased confusion over her baseline recently. She seems to be forgetting more. She also reports some pressure behind her left eye associated with slight blurry nests from the left eye. She has had increased elevated blood pressure. She denies
any neck stiffness. She denies any fevers or chills. She reported there is occasional nonproductive cough but no shortness of breath and denies nausea vomiting or diaphoresis. She denies any urinary symptoms.
She was recently admitted to the hospital with visual disturbance after infusion of Leqembi and an MRI showed acute/flare hyperintense signal with associated facilitated diffusion in the right occipital lobe. This was consistent with ARIA-E
(Amyloid-Related Imaging Abnormalities-Edema). She was started on IV steroids for 3 days.
MRI today again showing 'Signal alteration in the right occipital lobe without significant change compared to the brain MRI from 04/11/2025. Findings again could reflect amyloid-related edema (ARIA-E). Other less likely differential considerations
would include posterior reversible encephalopathy (PRES), a low-grade glioma, or other inflammatory process/encephalitis.'
Case discussed with neurology (Dr. Cardenas)
Admit to med/surg
- start IV solumedrol for 3 days. Given first dose in ED,
- neurology consulted
- continue aricept and memantine
- continue her coreg
DVT PPX - lovenox sq
Code status - Full Code
[2025-04-29] MEDS: SOLU-MEDROL 258 MG IV (19:43)
[2025-04-29 21:00] VITALS: BP 134/70; BMI 30.2
[2025-04-29] MEDS: PEPCID 20 MG PO (21:52)
[2025-04-29] MEDS: NAMENDA 5 MG PO (21:52)
[2025-04-29] MEDS: ARICEPT 5 MG PO (21:52)
[2025-04-29] MEDS: MAG-TAB SR 84 MG PO (21:52)
[2025-04-29] MEDS: LIPITOR 20 MG PO (21:54)
[2025-04-29] MEDS: COREG PO (21:54)
--- NOTE | 2025-04-29 23:08 | PTCARENOTE ---
21:05 Pt rec'vd from ER, ambulates to bed, vs WNL. Sister at the bedside , oriented to unit
--- NOTE | 2025-04-29 23:09 | PTCARENOTE ---
pt has nirmal coreg with parameters however she refused med because SBP is not within parameters her neurologist gave her. Pt was educated and understood however continue to decline.
[2025-04-30 00:21] LABS: Blood Urea Nitrogen 19 mg/dl (7-17); Calcium 9.8 mg/dl (8.4-10.2); Carbon Dioxide 25 mmol/L (22-30); Chloride 108 mmol/L (98-107); Estimated Creatinine Clearance 111 ml/min; Glucose 210 mg/dl (70-99); Potassium 3.7 mmol/L (3.5-5.1); Sodium 143 mmol/L (135-145); eGFR > 60.00
--- NOTE | 2025-04-30 02:33 | PTCARENOTE ---
Addendum entered by Danielle Arrieta RN 04/30/25 02:36:
correction hr 65
Original Note:
pts b/p 134/81 hr84 f/u secondary to pt refusing coreg.
[2025-04-30 02:35] VITALS: BP 134/81
[2025-04-30] MEDS: TYLENOL 650 MG PO ×3 (03:17→12:56)
[2025-04-30 07:30] VITALS: BP 146/95
[2025-04-30] MEDS: PEPCID 20 MG PO ×2 (08:41→19:54)
[2025-04-30] MEDS: COREG 12.5 MG PO ×2 (08:41→19:54)
[2025-04-30] MEDS: EFFEXOR XR 150 MG PO (08:42)
[2025-04-30] MEDS: VITAMIN D3 (cholecalciferol) 50 MCG PO (08:42)
[2025-04-30] MEDS: VITAMIN B-12 1000 MCG PO (08:43)
[2025-04-30] MEDS: NAMENDA 5 MG PO ×2 (08:43→19:54)
--- NOTE | 2025-04-30 09:01 | CON.NEURO ---
Addendum entered and electronically signed by Jamison Cardenas MD 04/30/25 11:07:
Studies reviewed.
I have personally examined the patient. I reviewed and agree with the RELATIONSHIP ADVISOR's Note.
My addenda:
Awake, alert, interactive. No acute distress.
Speech intact.
Follows 2-step requests w/o difficulty. No tremor.
Extra-ocular movements grossly intact.
Facial movements full and symmetric. Hearing intact to normal conversational volume.
Normal UE movements bilaterally.
Neck: full ROM.
Chest: no dyspnea
Heart: no JVD
Ext: (-) Clubbing, (-) Cyanosis, (-) Edema
IMPRESSIONS/RECOMMENDATIONS:
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
restart steroids, Methylprednisolone 1000 mg 3 infusions (total of 6 infusions for the past 3 weeks)
continue all other therapies
D/W patient / family / nursing
All questions answered.
Will continue to follow peripherally. Patient should follow with usual outpatient neurologist.
Original Note:
Neuro Assessment/Plan
Assessment
This patient is a 59-year-old female with a history of Alzheimer's disease receiving lecanemab who presented to [facility] on 04/11/2025 and again on with reported 'dizzy spells,' left eye pressure with blurriness and headaches.
Brain MRI 04/11/2025: There is T2/FLAIR hyperintense signal with associated facilitated diffusion in the right occipital lobe. 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
Brain MRI 04/29/2025: Signal alteration in the right occipital lobe without significant change compared to the brain MRI from 04/11/2025. Findings again could reflect amyloid-related edema (ARIA-E). Other less likely differential considerations would
include posterior reversible encephalopathy (PRES), a low-grade glioma, or other inflammatory process/encephalitis.
Plan
Impression: abrupt onset of dizziness, blurry vision, headaches and eye pressure most likely due to amyloid-related edema (ARIA-E) from lecanemab
-continue steroids as planned, monitor blood pressure and blood glucose levels while on steroids
-would not resume lecanemab
-recommend cognitive therapy outpatient
-recommend follow up with outpatient neurologist Dr. Kayden Jacobson
-may continue donepezil and memantine
All questions encouraged and answered, plan of care discussed with Dr. Cardenas, patient and family
Consultation
Order
Date of Consultation: 04/30/25
Requesting Provider: hospitalist
Reason for Consult: amyloid related edema
Subjective/Objective
Subjective Data
Date of Service: April 30, 2025
This patient is a 59-year-old female with a history of Alzheimer's disease who presented to [facility] on 04/11/2025 and again on reported 'dizzy spells' left eye pressure with blurriness and headaches. She had been receiving her Lecanemab for
her Alzheimer's and after the 4th infusion started to feel unwell. During her first hospital admission her brain MRI showed concern for amyloid-related edema (ARIA-E) and was put on steroids which helped her symptoms. For the last 5 days or so she
has been stating that she just does not feel herself. Her sister reports that while she does have baseline confusion she has markedly increased confusion recently. For example, she typically drives the 15-[address] to her sister's house 4 times
a week. Recently, she was lost for many hours while driving to her sister's house. She also has a sense of discomfort in the left occipital area which is not unusual as per sister. Patient has also been having increasingly persistently elevated
blood pressure which was thought to be due to steroids and was started on Coreg. Patient denies fever, chills, nausea, vomiting, numbness, tingling, focal weakness, anorexia, urinary symptoms, chest pain, dyspnea.
Patient has been followed by neurology at [facility] ( Dr. Kayden Jacobson), prior work up has included an Amyloid PET scan and Neuropsychological evaluation (05/29/2024). APOE was completed E3/E4. She also got a second
opinion by Dr. Myers from [facility].
Adapted from note by Alida Myers MD on 02/27/2025, 'At prior visits the patient and family reported: 12/05/2024: 'Onset: 1.5 years In 2022 PCP completed an MRI and the patient then completed a Neuropsychology evaluation at [facility], based on this
her PCP suspected a 'dementia' per family. Patient has been followed by neurology at [facility] ( Dr. Kayden Jacobson), prior work up has included an Amyloid PET scan and Neuropsychological evaluation (05/29/2024). APOE was
completed E3/E4. Patient and family are interested in exploring anti-amyloid therapies, and are planning to initiate them through [facility] (lecanemab, specifically) and wanted a second opinion of the appropriateness of this therapy for the patient.
They will getting an new MRI. [facility] will be managing the in ifusion need the patients home. She saw a neurologist Dr. Lares who said he does not do 'infusion treatments' for dementia, and started the patient on Donepezil.The patient was then seen by
Dr. Wooten at [facility], who ordered an Amyloid PET scan and diagnosed the patient with Alzheimer's Disease. He then added namenda to the patient's regiment, and planned to initate Lecanemab. Initial symptoms increased forgetfulness (ie lossing
items) Currently the patient main difficulty is forgetfulness of time - manifesting repetitive questioning.
Objective Data
Vital Signs
Temp Pulse Resp BP Pulse Ox
98.5 F 104 18 146/95 97
04/30/25 07:30 04/30/25 07:30 04/30/25 07:30 04/30/25 07:30 04/30/25 07:30
Lab Results
04/29/25 16:09
04/29/25 23:58
Sodium 143 mmol/L (135-145) 04/29/25 23:58
Potassium 3.7 mmol/L (3.5-5.1) 04/29/25 23:58
BUN 19 mg/dl (7-17) H 04/29/25 23:58
Glucose 210 mg/dl (70-99) H 04/29/25 23:58
Calcium 9.8 mg/dl (8.4-10.2) 04/29/25 23:58
Patient Allergies
diphenhydramine Allergy (Verified 04/29/25 19:11)
Unknown
Latex, Natural Rubber Allergy (Verified 04/29/25 19:11)
Shortness of Breath
Review of Systems
-
Unable to obtain full review of systems at this time due to: Dementia
Physical Exam
-
General: No Apparent Distress and Comfortable
HEENT: Normocephalic, Atraumatic and Anicteric
Neck: Full Range of Motion
Respiratory: No Dyspnea
Cardiac: No JVD
GI: Non-distended
Skin: Unremarkable
Extremities: No Clubbing, No Cyanosis and No Edema
Psych: Apparent Dementia
Extended Neurological Exam
Mood & Affect: Mood Unremarkable
Attention Span & Concentration: Awake, Alert, Interactive, Mild Difficulty with 2 Step Request and Other (Difficulty with holidays )
Memory: Reduced
Tremor: Hand Tremor Absent and Head Tremor Absent
Involuntary Movement: None
Speech: Quality Unremarkable, Quantity Unremarkable and Rate of Production Unremarkable
Cranial Nerve II: Left Eye: Visual Kevin Grossly Intact
Cranial Nerve II: Right Eye: Visual Kevin Grossly Intact
Cranial Nerves III, IV, : Extraocular Movement: Ptosis on Left
Cranial Nerve VII: Facial Symmetry: Normal Facial Symmetry
Cranial Nerve VIII: Hearing: Unremarkable Hearing to Normal Conversational Volume
Muscle Strength, Overall: Full Throughout
Pronator Drift: No Drift in Upper Extremities and No Drift in Lower Extremities
Deep Tendon Reflexes: Unremarkable Throughout
Coordination: [id number] Testing Unremarkable and Reaches for Objects without Difficulty
Data Reviewed
-
MRI Head: Report Reviewed and Image Reviewed
Labs: Report Reviewed
Reviewed with: Physician, Patient and Family
Old Records: Summarized
Medications
-
Active Medications
Generic Name Dose Route Start Last Admin
Trade Name Freq PRN Reason Stop Dose Admin
Acetaminophen 650 mg 04/29/25 21:08 04/30/25 08:41
Acetaminophen 325 Mg Tablet PO 05/27/25 21:07 650 mg
Q4HPRN PRN Administration
mild pain/CARRANZA/temp> 100.4F
Atorvastatin Calcium 20 mg 04/29/25 22:00 04/29/25 21:54
Atorvastatin (Lipitor) 20 Mg Tablet PO 05/27/25 21:59 20 mg
HS REJI Administration
Bisacodyl 10 mg 04/29/25 21:08
Bisacodyl 10 Mg Rectal Suppository RECTAL 05/27/25 21:07
[id number] PRN
constipation
Carvedilol 12.5 mg 04/29/25 21:08 04/30/25 08:41
Carvedilol 12.5 Mg Tablet PO 05/27/25 21:07 12.5 mg
BID REJI Administration
Cholecalciferol 50 mcg 04/30/25 08:00 04/30/25 08:42
Cholecalciferol (Vitamin D3) 50 Mcg Tablet (2,000 Units) PO 05/28/25 07:59 50 mcg
DAILY REJI Administration
Cyanocobalamin 1,000 mcg 04/30/25 08:00 04/30/25 08:43
Cyanocobalamin 1,000 Mcg Tablet PO 05/28/25 07:59 1,000 mcg
Q48H REJI Administration
Donepezil HCl 5 mg 04/30/25 18:00
Donepezil 5 Mg Tablet PO 05/28/25 17:59
QPM REJI
Enoxaparin Sodium 40 mg 04/30/25 18:00
Enoxaparin Sodium 40 Mg/0.4 Ml Syringe SC 05/28/25 17:59
QPM REJI
Famotidine 20 mg 04/29/25 21:08 04/30/25 08:41
Famotidine 20 Mg Tablet PO 05/27/25 21:07 20 mg
BID REJI Administration
Methylprednisolone Sodium 258 mls @ 258 mls/hr 04/30/25 20:00
Succinate 1,000 mg/ Sodium IV 05/28/25 19:59
Chloride Q24H REJI
Magnesium 84 mg 04/29/25 22:00 04/29/25 21:52
Magnesium Lactate 84 Mg Tablet PO 05/27/25 21:59 84 mg
HS REJI Administration
Melatonin 5 mg 04/29/25 21:08
Melatonin 5 Mg Tablet PO 05/27/25 21:07
HSPRN PRN
sleep
Memantine 5 mg 04/29/25 22:00 04/30/25 08:43
Memantine 10 Mg Tablet PO 05/27/25 21:59 5 mg
BID REJI Administration
Ruxolitinib [ 0 applic 04/29/25 21:08
Opzelura] 1.5 % TOPICAL 05/27/25 21:07
Cream Apply A Thin BID REJI
Layer To Vitiligo
Bid
Polyethylene Glycol 17 grams 04/29/25 21:08
Polyethylene Glycol Powder 17 Grams Packet PO 05/27/25 21:07
DAILYPRN PRN
constipation
Senna/Docusate Sodium 1 tablet 04/29/25 21:08
Docusate W/Senna (Anastasiia-Colace) Tablet PO 05/27/25 21:07
BIDPRN PRN
constipation
Sodium Chloride 0 flush 04/29/25 22:00
Sodium Chloride 0.9% (Flush) Syringe IV 05/27/25 21:59
PER PROTOCOL REJI
Venlafaxine HCl 150 mg 04/30/25 08:00 04/30/25 08:42
Venlafaxine 150 Mg Extended Release Capsule PO 05/28/25 07:59 150 mg
DAILY REJI Administration
Home Medications
�Medication �Instructions �Recorded
atorvastatin 20 mg tablet (Lipitor) 20 mg PO HS cholesterol 02/28/25
cholecalciferol (vitamin D3) 50 50 mcg PO DAILY Supplement 02/28/25
mcg (2,000 unit) capsule (Vitamin
D3)
donepezil 5 mg tablet (Aricept) 5 mg PO QPM Neurological Condition 02/28/25
famotidine 20 mg tablet (Acid 20 mg PO BID Gastrointestinal Issue 02/28/25
Filter Tank Tender Helper (famotidine))
magnesium 250 mg tablet 250 mg PO HS Supplement 02/28/25
melatonin 5 mg tablet 5 mg PO HSPRN PRN sleep 02/28/25
memantine 5 mg tablet 5 mg PO BID Mental Health/Anxiety 02/28/25
venlafaxine 150 mg 150 mg PO DAILY Mental 02/28/25
capsule,extended release 24 hr Health/Anxiety
acetaminophen 500 mg tablet 1,000 mg PO TIDPRN PRN mild pain 04/11/25
(Tylenol Extra Strength)
cyanocobalamin (vitamin B-12) 1,000 mcg PO Q48H Supplement 04/11/25
1,000 mcg tablet
ruxolitinib 1.5 % topical cream 1 applic topical BID apply to 04/11/25
(Opzelura) vitiligo
carvedilol 12.5 mg tablet 12.5 mg PO BID #60 tabs 04/14/25
Past History
Past History
ED Past Medical History: Other (early onset alzheimers)
ED Past Surgical History: and Gynecological
Family/Social History
Tobacco: Non-smoker
Alcohol: Occasional
Drug: None
Personal: Partner
Living: with family
--- NOTE | 2025-04-30 09:11 | W.PN.HOSP.TC ---
Today's Communication/Plan
-
IV steroids
Neurology consult
Assessment / Plan
Assessment / Plan
MS. Luh Meléndez is a 59-year-old female with past medical history significant for early onset dementia, (Alzheimer's dementia) hypertension, hyperlipidemia presenting to the emergency department with 5 days of not feeling herself with increased
confusion, pressure behind left eye associated with blurry vision, and higher BP readings . She was recently admitted to the hospital with visual disturbance after infusion of Leqembi and an MRI showed acute/flare hyperintense signal with
associated facilitated diffusion in the right occipital lobe. This was consistent with ARIA-E (Amyloid-Related Imaging Abnormalities-Edema). She was started on IV steroids for 3 days.
MRI
IMPRESSION:
Signal alteration in the right occipital lobe without significant change compared to the brain MRI from 04/11/2025. Findings again could reflect amyloid-related edema (ARIA-E). Other less likely differential considerations would include posterior
reversible encephalopathy (PRES), a low-grade glioma, or other inflammatory process/encephalitis.
Amyloid-Related Edema
Admit to med/surg
- case discussed with Dr. Cardenas in the ER
- start IV solumedrol for 3 days. Given first dose in ED,
- neurology consulted - follow up further recommendations
# Hypertension
# Hyperlipidemia
-Statin and Coreg continued
# History Alzheimer's disease
-Aricept, memantine continued
# GERD
-PPI continued
# DVT prophylaxis
-Lovenox
# CODE STATUS
-Full code
DVT PPX - lovenox sq
Code status - Full Code
Anticipated Discharge: > 48 hours
Subjective/Interval History
-
Date of Service: April 30, 2025
she complains of headache (typical per sister), right sided heaviness behind eye
no blurry vision
Objective Data
-
Labs:
Laboratory Results
04/29/25
23:58
Sodium 143
Potassium 3.7
Chloride 108 H
Carbon Dioxide 25
BUN 19 H
Creatinine 0.6
Glucose 210 H
Calcium 9.8
Vital Signs:
Vital Signs
Temp Pulse Resp BP Pulse Ox
98.5 F 104 18 146/95 97
04/30/25 07:30 04/30/25 07:30 04/30/25 07:30 04/30/25 07:30 04/30/25 07:30
I&O
04/29/25 04/30/25 05/01/25
06:59 06:59 06:59
Intake Total 960 / 960
Balance 960 / 960
Review of Systems
-
History Source: Patient
All other systems: Reviewed and negative
Physical Exam
-
General: No Apparent Distress
HEENT: PERRLA and Other (EOMI)
Respiratory: Clear to Auscultation; Negative Wheezes
Cardiac: Regular Rhythm and S1/S2
GI: Soft and Nontender
Musculoskeletal: No Edema
Skin: Warm and Dry; Negative Rash
Neuro: AO x 3
Psych: Calm
Data Reviewed
-
Diagnostic Radiology: Report Reviewed by me
Labs: Labs Reviewed by me
[2025-04-30] MEDS: SOLU-MEDROL 258 MG IV (10:18)
--- NOTE | 2025-04-30 10:52 | CM ---
CM met with pt and sister/Paula bedside
Pt resides with her SO/Cristóbal in a 2SH with 1STE, full flight to 2nd floor
Pt with early on-set Alzheimers- fairly AxO 3x, able to provide all info for assessment
Her SO works from home during the day
Pt is indep with her ADLs, no DMEs, drives+
No longer working- in process of applying for disability benefits
Sister is medical/financial POA and very involved with pt's care
Dtr/Jen is backup POA and will be out of country next week
PCP- Cristy Gotti
Rx- [facility]
Community resources discussed as pt looking for social/volunteer opportunities
[employer] for volunteer companionship programs as well [employer] and crafting discussed
CM will follow for dc planning
Discharge Disposition- anticipate home no needs, family transport
[2025-04-30 13:06] LABS: Glucose - Point of Care 193 mg/dl (70-99)
[2025-04-30 14:13] LABS: Glycohemoglobin (HgbA1c) 5.9 % (4.0-5.6)
[2025-04-30 15:40] VITALS: BP 156/101
[2025-04-30] MEDS: TORADOL 15 MG IV (16:37)
[2025-04-30] MEDS: MAGNESIUM SULFATE 100 IV (16:38)
[2025-04-30 18:18] LABS: Glucose - Point of Care 157 mg/dl (70-99)
[2025-04-30] MEDS: ARICEPT 5 MG PO (18:31)
[2025-04-30] MEDS: LOVENOX 40 MG SC (18:31)
[2025-04-30] MEDS: NOVOLOG FLEXPEN-LOW RESISTANCE 1 UNITS SC (18:48)
[2025-04-30 19:25] VITALS: BP 154/98
[2025-04-30] MEDS: LIPITOR 20 MG PO (21:31)
[2025-04-30] MEDS: MAG-TAB SR 84 MG PO (21:31)
[2025-04-30 22:10] LABS: Glucose - Point of Care 139 mg/dl (70-99)
[2025-04-30 23:05] VITALS: BP 153/89
[2025-05-01 07:05] VITALS: BP 157/94
[2025-05-01 07:18] LABS: Glucose - Point of Care 138 mg/dl (70-99)
[2025-05-01] MEDS: NOVOLOG FLEXPEN-LOW RESISTANCE SC (07:50)
[2025-05-01 08:20] LABS: Blood Urea Nitrogen 22 mg/dl (7-17); Calcium 10.1 mg/dl (8.4-10.2); Carbon Dioxide 24 mmol/L (22-30); Chloride 106 mmol/L (98-107); Estimated Creatinine Clearance 111 ml/min; Glucose 130 mg/dl (70-99); Magnesium 2.4 mg/dl (1.6-2.3); Potassium 3.9 mmol/L (3.5-5.1); Sodium 143 mmol/L (135-145); eGFR > 60.00
[2025-05-01] MEDS: PEPCID 20 MG PO (08:36)
[2025-05-01] MEDS: COREG 12.5 MG PO (08:37)
[2025-05-01] MEDS: EFFEXOR XR 150 MG PO (08:37)
[2025-05-01] MEDS: VITAMIN D3 (cholecalciferol) 50 MCG PO (08:37)
[2025-05-01] MEDS: NAMENDA 5 MG PO (08:38)
[2025-05-01] MEDS: TYLENOL 650 MG PO (08:42)
--- NOTE | 2025-05-01 09:05 | W.PN.HOSP.TC ---
Today's Communication/Plan
-
continue steroids
IV Compazine today
Assessment / Plan
Assessment / Plan
MS. Luh Meléndez is a 59-year-old female with past medical history significant for early onset dementia, (Alzheimer's dementia) hypertension, hyperlipidemia presenting to the emergency department with 5 days of not feeling herself with increased
confusion, pressure behind left eye associated with blurry vision, and higher BP readings . She was recently admitted to the hospital with visual disturbance after infusion of Leqembi and an MRI showed acute/flare hyperintense signal with
associated facilitated diffusion in the right occipital lobe. This was consistent with ARIA-E (Amyloid-Related Imaging Abnormalities-Edema). She was started on IV steroids for 3 days.
MRI
IMPRESSION:
Signal alteration in the right occipital lobe without significant change compared to the brain MRI from 04/11/2025. Findings again could reflect amyloid-related edema (ARIA-E). Other less likely differential considerations would include posterior
reversible encephalopathy (PRES), a low-grade glioma, or other inflammatory process/encephalitis.
Amyloid-Related Edema
Admit to med/surg
- case discussed with Dr. Cardenas in the ER
- start IV solumedrol for 3 days. Given first dose in ED,; 3rd dose today
- neurology consult appreciated
Headache
-trial of IV Compazine
# Hypertension
# Hyperlipidemia
-Statin and Coreg continued
# History Alzheimer's disease
-Aricept, memantine continued
# GERD
-PPI continued
# DVT prophylaxis
-Lovenox
# CODE STATUS
-Full code
DVT PPX - SCD
Code status - Full Code
Anticipated Discharge: Within 24 hours
Subjective/Interval History
-
Date of Service: May 01, 2025
she continues to have a headache
she slept well last night and walked the halls yesterday
Objective Data
-
Labs:
Laboratory Results
05/01/25
06:54
Sodium 143
Potassium 3.9
Chloride 106
Carbon Dioxide 24
BUN 22 H
Creatinine 0.6
Glucose 130 H
Calcium 10.1
Vital Signs:
Vital Signs
Temp Pulse Resp BP Pulse Ox
98.1 F 98 16 157/94 96
05/01/25 07:05 05/01/25 08:37 05/01/25 07:05 05/01/25 08:37 05/01/25 07:05
I&O
04/30/25 05/01/25 05/02/25
06:59 06:59 06:59
Intake Total 960 / 960 960 / 960
Output Total 2 / 2
Balance 960 / 960 958 / 958
Review of Systems
-
History Source: Patient
All other systems: Reviewed and negative
Physical Exam
-
General: No Apparent Distress
HEENT: PERRLA and Other (EOMI)
Respiratory: Clear to Auscultation; Negative Wheezes
Cardiac: Regular Rhythm and S1/S2
GI: Soft and Nontender
Musculoskeletal: No Edema
Skin: Warm and Dry; Negative Rash
Neuro: AO x 3
Psych: Calm
Data Reviewed
-
Diagnostic Radiology: Report Reviewed by me
Labs: Labs Reviewed by me
--- NOTE | 2025-05-01 09:11 | W.PN.NEURO.1 ---
Today's Communication / Plan
-
continue steroids as planned, monitor blood pressure and blood glucose levels while on steroids
would not resume lecanemab
recommend cognitive therapy outpatient
may continue donepezil and memantine
Neuro Assessment/Plan
Assessment
59-year-old female with a history of Alzheimer's disease receiving lecanemab who presented to [facility] on 04/11/2025 and again on with reported 'dizzy spells,' left eye pressure with blurriness and headaches.
Brain MRI 04/11/2025: There is T2/FLAIR hyperintense signal with associated facilitated diffusion in the right occipital lobe. 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
Brain MRI 04/29/2025: Signal alteration in the right occipital lobe without significant change compared to the brain MRI from 04/11/2025. Findings again could reflect amyloid-related edema (ARIA-E). Other less likely differential considerations would
include posterior reversible encephalopathy (PRES), a low-grade glioma, or other inflammatory process/encephalitis.
Impression: abrupt onset of dizziness, blurry vision, headaches and eye pressure most likely due to amyloid-related edema (ARIA-E) from lecanemab
Plan
-continue steroids as planned, monitor blood pressure and blood glucose levels while on steroids
-would not resume lecanemab
-recommend cognitive therapy outpatient
-may continue donepezil and memantine
Will follow up as needed. Follow up with outpatient neurologist Dr. Kayden Jacobson
Subjective/Objective
Subjective Data
Date of Service: May 01, 2025
Objective Data
Vital Signs
Temp Pulse Resp BP Pulse Ox
36.7 C 98 16 157/94 96
05/01/25 07:05 05/01/25 08:37 05/01/25 07:05 05/01/25 08:37 05/01/25 07:05
Lab Results
04/29/25 16:09
05/01/25 06:54
Sodium 143 mmol/L (135-145) 05/01/25 06:54
Potassium 3.9 mmol/L (3.5-5.1) 05/01/25 06:54
BUN 22 mg/dl (7-17) H 05/01/25 06:54
Glucose 130 mg/dl (70-99) H 05/01/25 06:54
Calcium 10.1 mg/dl (8.4-10.2) 05/01/25 06:54
Patient Allergies
diphenhydramine Allergy (Verified 04/29/25 19:11)
Unknown
Latex, Natural Rubber Allergy (Verified 04/29/25 19:11)
Shortness of Breath
[2025-05-01] MEDS: COMPAZINE 10 MG IV (09:35)
[2025-05-01] MEDS: SOLU-MEDROL 258 MG IV (09:36)
[2025-05-01] MEDS: VALTREX 500 MG PO (10:28)
[2025-05-01 11:36] LABS: Glucose - Point of Care 174 mg/dl (70-99)
--- NOTE | 2025-05-01 12:53 | W.DS.TRANS ---
DC Summary - Bending Machine Operator
-
Discharge Instructions:
Discharge Diagnosis/Procedures ARIA-E (Amyloid-Related Imaging Abnormalities-
Edema)
Diet Regular
Activity As tolerated
Driving Restrictions No driving
Bathing Restrictions None
Instructions:
Stand-Alone Forms:
Changes to Home Medications: Yes
Discharge Medications:
DC Medications w/original date entered in [facility]
atorvastatin 20 mg tablet (Lipitor) 20 mg PO HS cholesterol 02/28/25
cholecalciferol (vitamin D3) 50 mcg (2,000 unit) capsule (Vitamin D3) 50 mcg PO DAILY Supplement 02/28/25
donepezil 5 mg tablet (Aricept) 5 mg PO QPM Neurological Condition 02/28/25
famotidine 20 mg tablet (Acid Shoe Salesman (famotidine)) 20 mg PO BID Gastrointestinal Issue 02/28/25
magnesium 250 mg tablet 250 mg PO HS Supplement 02/28/25
melatonin 5 mg tablet 5 mg PO HSPRN PRN sleep 02/28/25
memantine 5 mg tablet 5 mg PO BID Mental Health/Anxiety 02/28/25
venlafaxine 150 mg capsule,extended release 24 hr 150 mg PO DAILY Mental Health/Anxiety 02/28/25
acetaminophen 500 mg tablet (Tylenol Extra Strength) 1,000 mg PO TIDPRN PRN mild pain 04/11/25
cyanocobalamin (vitamin B-12) 1,000 mcg tablet 1,000 mcg PO Q48H Supplement 04/11/25
ruxolitinib 1.5 % topical cream (Opzelura) 1 applic topical BID apply to vitiligo 04/11/25
carvedilol 12.5 mg tablet 12.5 mg PO BID #60 tabs 04/14/25
prednisone 20 mg tablet 60 mg (3 x 20 mg) PO DAILY #60 tabs 05/01/25
prochlorperazine maleate 5 mg tablet (Compazine) 5 mg PO QID PRN headache #30 tabs 05/01/25
valacyclovir 500 mg tablet 500 mg PO BID #6 tabs 05/01/25
Home Medication Changes
Per Dr. Alegre, we are prescribing prednisone 60mg daily x 2 weeks. He will then prescribe further taper as outpatient (do not abruptly stop steroids, lower dosing will need to be prescribed post this course).
You are prescribed Compazine as needed for headache
You are prescribed 3 days of Valtrex for cold sore.
Pending Results: No
[2025-05-01] MEDS: NOVOLOG FLEXPEN-LOW RESISTANCE 1 UNITS SC (12:57)
--- NOTE | 2025-05-01 13:41 | W.DCSUMMARY ---
Addendum entered and electronically signed by Dyan Serna MD 05/01/25 14:01:
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 She is prescribed Valtrex x 3 days.
Original Note:
Discharge Summary
Discharge Data
Date of Admission: 04/29/25
Date of Discharge: 05/01/25
-
Pending Results: No
Hospital Course
Discharging Physician : Dr. Dyan Serna
Disposition : Home
Primary care physician : Dr. Cristy Gotti
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
Hospital Course :
Ms. Luh Meléndez is a 59-year-old female with past medical history significant for early onset dementia, (Alzheimer's dementia) hypertension, hyperlipidemia presenting to the emergency department with 5 days of not feeling herself with increased
confusion, pressure behind left eye associated with blurry vision, and higher BP readings . She was recently admitted to the hospital with visual disturbance after infusion of Leqembi and an MRI showed acute/flare hyperintense signal with
associated facilitated diffusion in the right occipital lobe. This was consistent with ARIA-E (Amyloid-Related Imaging Abnormalities-Edema).
Triage VS significant for BP 137/97. Labs unremarkable. MRI was repeated which showed similar findings as prior.
Patient was admitted for another ARIA flair. Neurology was consulted. She was given 3 doses of IV Solumedrol 1G. I discussed plan of care with her Neurologist, Dr. Jacobson, who recommends discharge on Prednisone 60mg daily x 2 weeks. He
will then prescribe taper. Patient's sister is aware that she cannot abruptly stop Prednisone and plans to follow up with Dr. Alegre within the week to continue tapered prednisone.
Patient's BGL were checked and OK on high dose steroids.
She had a headache and received some relief with Compazine. This is prescribed at discharge.
Time spent on discharge was 35 minutes.
Important imaging findings :
MRI 04/29/25
IMPRESSION:
Signal alteration in the right occipital lobe without significant change compared to the brain MRI from 04/11/2025. Findings again could reflect amyloid-related edema (ARIA-E). Other less likely differential considerations would include posterior
reversible encephalopathy (PRES), a low-grade glioma, or other inflammatory process/encephalitis.
Procedure findings :
Discharge Plan
-
Patient Disposition: Home (Routine Discharge)
Discharge Diagnosis/Procedures: ARIA-E (Amyloid-Related Imaging Abnormalities-Edema)
Condition: Good
Diet: Regular
Activity: As tolerated
Driving Restrictions: No driving
Bathing Restrictions: None
Referrals:
Cristy Gotti, [Family Provider, Family Practice] - in less than 1 week
Additional Discharge Medication Instructions: Follow up with Dr. Kayden Jacobson within next two weeks (before Prednisone course complete)
Per Dr. Alegre, we are prescribing prednisone 60mg daily x 2 weeks. He will then prescribe further taper as outpatient (do not abruptly stop steroids, lower dosing will need to be prescribed post this course).
You are prescribed Compazine as needed for headache. You are prescribed 5mg tablets. If you have a severe headache, you may take 2 tablets.
You are prescribed 3 days of Valtrex for cold sore.
Prescriptions:
New
valacyclovir 500 mg Tablet
500 mg PO BID Qty: 6 0RF
prednisone 20 mg tablet
60 mg PO DAILY Qty: 60 0RF
Rx Instructions:
Take 60mg (3 tabs) x 14 days then further taper to be dictated by Dr. Alegre
prochlorperazine maleate [Compazine] 5 mg tablet
5 mg PO BID PRN (Reason: headache) Qty: 30 0RF
Rx Instructions:
You may take 2 tabs (10mg) for severe headache.
Continued
atorvastatin [Lipitor] 20 mg Tablet
20 mg PO HS
Patient Comments:
04/11/2025, placed on hold 04/05/2025 per pt.'s sister due to cognitive changes; was taking 1 tablet HS. OK to resume per hospitalist & sister
donepezil [Aricept] 5 mg Tablet
5 mg PO QPM
venlafaxine 150 mg Capsule,Extended Release 24hr
150 mg PO DAILY
famotidine [Acid Information Assurance Officer (famotidine)] 20 mg Tablet
20 mg PO BID
magnesium 250 mg Tablet
250 mg PO HS
memantine 5 mg Tablet
5 mg PO BID
melatonin 5 mg Tablet
5 mg PO HSPRN PRN (Reason: sleep)
cholecalciferol (vitamin D3) [Vitamin D3] 50 mcg (2,000 unit) Capsule
50 mcg PO DAILY
cyanocobalamin (vitamin B-12) 1,000 mcg Tablet
1,000 mcg PO Q48H
acetaminophen [Tylenol Extra Strength] 500 mg Tablet
1,000 mg PO TIDPRN PRN (Reason: mild pain)
Opzelura 1.5 % cream
1 applic TOPICAL BID
carvedilol 12.5 mg Tablet
12.5 mg PO BID Qty: 60 0RF
Discharge Orders:
Discharge Patient (As Directed); Ordered 05/01/25
Ordered By: Dyan Serna
Discharge Date and Time
Print Language: ROMANIAN
[2025-05-01 14:00] VITALS: BP 139/86
--- NOTE | 2025-05-01 14:14 | CM ---
Plan: discharge to home; no needs; family provided transport
== END 2025-05-01 14:07 | disposition home or self-care (01) | DRG 545 ==
LOC: 2 SOUTH 20:22
PROVIDERS: Nurse Practitioner Family; ADMITTING PHYSICIAN Internal Medicine; ATTENDING PHYSICIAN Student in an Organized Health Care Education/Training Program; CONSULT PHYSICIAN Psychiatry & Neurology Neurology; EMERGENCY PHYSICIAN Emergency Medicine; FAMILY PHYSICIAN Family Medicine
DX: E85.4 Organ-limited amyloidosis (principal); G93.6 Cerebral edema; I67.83 Posterior reversible encephalopathy syndrome; B00.89 Other herpesviral infection; I68.0 Cerebral amyloid angiopathy; R05.9 Cough, unspecified; F02.80 Dementia in other diseases classified elsewhere, unspecified severity, without behavioral disturbance, psychotic disturbance, mood disturbance, and anxiety; G30.0 Alzheimer's disease with early onset; I10 Essential (primary) hypertension; E78.5 Hyperlipidemia, unspecified; R42 Dizziness and giddiness; H57.89 Other specified disorders of eye and adnexa; R51.9 Headache, unspecified; H53.8 Other visual disturbances; K21.9 Gastro-esophageal reflux disease without esophagitis; Z91.81 History of falling; Z88.8 Allergy status to other drugs, medicaments and biological substances; Z91.040 Latex allergy status
CPT/HCPCS: 70551; 80048; 82962; 83036; 83735; 85027; 99285

== ENCOUNTER → 2025-05-09 20:04 | Outpatient (REF) | payer OTHER, SELFPAY | LOC: MRI 20:04 | PROVIDERS: ATTENDING PHYSICIAN Physician Assistant; FAMILY PHYSICIAN Family Medicine | DX: G31.84 Mild cognitive impairment of uncertain or unknown etiology (principal); G30.0 Alzheimer's disease with early onset; F02.80 Dementia in other diseases classified elsewhere, unspecified severity, without behavioral disturbance, psychotic disturbance, mood disturbance, and anxiety | CPT/HCPCS: 70551 ==

== ENCOUNTER → 2025-06-13 07:21 | Outpatient (REF) | payer OTHER, SELFPAY | LOC: MRI 07:21 | PROVIDERS: ATTENDING PHYSICIAN Physician Assistant; FAMILY PHYSICIAN Family Medicine | DX: G30.0 Alzheimer's disease with early onset (principal); F02.80 Dementia in other diseases classified elsewhere, unspecified severity, without behavioral disturbance, psychotic disturbance, mood disturbance, and anxiety; G93.6 Cerebral edema; R51.9 Headache, unspecified; G93.9 Disorder of brain, unspecified | CPT/HCPCS: 70551 ==